=== PATIENT | male | born 2000 | race African-American/Black ===

== ENCOUNTER 2021-03-05 07:15 | Emergency (ER) | payer SELFPAY ==
[2021-03-05 07:31] VITALS: BP 131/82; PULSE 60; TEMP 98; BMI 19.9
[2021-03-05] MEDS ORDERED: IBUPROFEN 600 MG TABLET (FP) PO ONE ×2 (08:52→09:06)
[2021-03-05] MEDS ORDERED: AMOX TR/POT CLAV 875MG/125MG TABLETS (FP) PO ONE (09:45)
[2021-03-05] MEDS ORDERED: AMOX TR/POT CLAV 875MG/125MG TABLETS (FP) ONE (09:58)
== END 2021-03-05 10:12 | disposition home or self-care (01) ==
LOC: JER 07:15
DX: K04.7 Periapical abscess without sinus (principal)
CPT/HCPCS: 99283-25